=== PATIENT | male | born 1995 | race Caucasian/White ===

== ENCOUNTER 2021-04-17 14:43 | Inpatient (IN) | payer OTHER ==
[~2021-04-17] VITALS: Ht 185.4 cm; Wt 69.6 kg
[~2021-04-17 14:43] MED LIST: IBUP400 PO
--- NOTE | 2021-04-17 16:36 | NUR ---
SHIFT SUMMARY PT DIRECT ADMIT BY ATTENDING PROVIDER, DENIES PAIN, DENIES N/T IN ALL EXTREMITIES, REPORTS MILD SOB BUT STATES IT IS TOLERABLE AT THIS TIME, CHEST TUBE IN PLACE, SUCTION SET UP IN ROOM PER DR REQUEST BUT NOT CURRENTLY ATTACHED TO PT AT THIS TIME. NO ACUTE EVENTS THIS SHIFT, CALL LIGHT IN REACH, WILL CTM AND REPORT TO DAY RN.
--- NOTE | 2021-04-18 04:28 | NUR ---
INFORMATION TECHNOLOGY ANALYST SUMMARY NO ACUTE CHANGES THIS SHIFT. PT AAOX4 AND PLEASANT. CHEST TUBE HOOKED UP TO SUCTION, GOOD SEAL MAINTAINED. VERY SMALL SMOUNTS OF FLUIDS IN SUCTION LINE BUT NONE IN COLLECTION CHAMBER. PT DENIES SOB OR PAIN. VSS, WILL CONTINUE TO MONITOR.
--- NOTE | 2021-04-18 15:36 | NUR ---
SHIFT SUMMARY PT A&OX4, VSS/RA, DENIES CP/SOB, TIFFANIE PO, VOIDING, AMB TO BRP. CHEST TUBE TO WALL SUCTION. WILL REPORT TO ONCOMING NOC RN.
--- NOTE | 2021-04-19 04:45 | NUR ---
SHIFT SUMMARY ELIZABETH DENIES SOB OR CP. ONCE THIS SHIFT, PT STATED HE LIFTED HIS ARM AND THEN NOTICED A SCANT AMOUNT OF BLOODY DRAINAGE FROM THE CHEST TUBE INSERTION SITE DRESSING. CHARGE NURSE NOTIFIED, AND CT SYSTEM ASSESSED FOR LEAKS - SYSTEM IS PATENT WITH 20CM WATER, ATTACHED TO WALL SUCTION. EDGES OF DRESSING REINFORCED WITH CLEAR OFFSITE. SITE ASSESSED THROUGH OUT SHIFT, NO FURTHER DRAINAGE NOTED. PT'S LUNGS ARE CLEAR, DIMINISHED TO THE RIGHT. PT AMBULATES INDEPENDENTLY TO BATHROOM, EDUCATED ON SAFETY MEASURES R/T TUBING. ROOM AIR. NO ACUTE CHANGES, VSS.
--- NOTE | 2021-04-19 08:59 | NUR ---
DENIES ANY SOB OR COUGH, RESPIRATIONS UNLABORED, UP INDEPENDENTLY TO THE BATHROOM, DENIES ANY PAIN, CHEST TUBE TO R CHEST WALL INTACT, DSG INTACT, NO AIR LEAK NOTED IN CHAMBER, CONT. TO MONITOR FOR ANY CHANGES.
--- NOTE | 2021-04-19 11:11 | NUR ---
DENIES ANY SOB OR COUGH, RESPIRATIONS UNLABORED, CHEST TUBE INTACT, DR. APODACA PLACED ON WATER SEAL.
--- NOTE | 2021-04-19 18:23 | NUR ---
SUMMARY CHEST TUBE PLACED TO WATER SEAL BY DR. APODACA TODAY, PT DENIES ANY SOB, PAIN OR ANY DISCOMFORT, CHEST TUBE SITE INTACT, PT AMBULATING TO THE BATHROOM WITHOUT DIFFICULTY, PLAN FOR CXR IN AM, NO ACUTE CHANGES THIS SHIFT.
--- NOTE | 2021-04-20 07:19 | NUR ---
SUMMARY PT WITHOUT C/O TONIGHT. CT REMAINS TO WATERSEAL. DENIES SOB
--- NOTE | 2021-04-20 08:28 | NUR ---
DENIES ANY SOB, PAIN OR ANY DISCOMFORT THIS AM, CHEST TUBE TO RCW INTACT, NO AIR LEAK NOTED, CXR PENDING THIS AM.
--- NOTE | 2021-04-20 11:46 | NUR ---
CHEST TUBE PLACED BACK ON SUCTION BY DR. APODACA.
--- NOTE | 2021-04-20 17:10 | NUR ---
SUMMARY DENIES ANY SOB OR COUGH, CHEST TUBE TO SUCTION, INDEPENDENT IN ROOM, DENIES ANY PAIN, CXR IN AM PER DR. APODACA, NO ACUTE CHANGES THIS SHIFT.
--- NOTE | 2021-04-20 23:05 | NUR ---
PT REPORTS MILD INCREASED SOB.WHEN QUESTIONED FURTHER, PT STATES HIS BREATHING "DEFINITELY FEELS DIFFERENT THAN 2 HRS AGO" PLEURAVAC HAS INCREASED WATER IN THE AIR LEAK METER CHAMBER NOTED.PT HAS NO NOTING OF IT GETTING TIPPED.CONTINUES SX AT 20 CM.VS SATISF SLIGHTLY HYPERTENSIVE.PT AKNOWLEDGED SOME ANXIETY REGARDING HAVING TO RETURN SX TO CHEST TUBE TODAY.I CALLED DR APODACA AND ADVISED OF ABOVE AND ONLY ORDER RECEIVED IS TO CHANGE OUT PLEURAVAC.
--- NOTE | 2021-04-21 00:38 | NUR ---
ATRIUM-PLEURAVAC WAS CHANGED.SX CONTINUED AT 20 CM.
--- NOTE | 2021-04-21 07:41 | NUR ---
SUMMARY PT REPORTS FEELING A LITTLE LESS SOB THIS AM.PET CAREGIVERILSA JONES JUST RECEIVED ORDERS TO NOT REMOVE SX ON THIS PT.PET CAREGIVER IS NOTIFYING PT.
--- NOTE | 2021-04-21 08:53 | NUR ---
PT WITH THORVENT TO R CHEST WALL SET TO 20CM WALL SX. NO CREPITUS NOTED. PT REPORTS SOME SOB BUT STATES IT IS BETTER THAN IS WAS IN THE NIGHT.
--- NOTE | 2021-04-22 07:23 | NUR ---
PT SLEPT FOR MAJORITY OF NIGHT. VSS, RESP E/U, SATS >90% ON RA. CHEST TUBE CONT ON LOW SX, NO CREPITUS NOTED. PT DENIED SOB, DENIED PAIN.
--- NOTE | 2021-04-22 08:37 | NUR ---
PT SITTING UP IN BED, DOES NOT APPEAR TO BE HAVING ANY DIFFICULTY BREATHING. THORAVENT TO R CHEST WALL TO 20CM SX. DRESSING C/D/I. PT REPORTS IT IS "MUCH EASIER TO BREATHE TODAY". NO CREPITUS PRESENT. INCREASED BREATH SOUNDS ON R. PLAN TO CONTINUE SX UNTIL WEDNESDAY.
--- NOTE | 2021-04-22 18:38 | NUR ---
SHIFT SUMMARY PT HAS DONE WELL T/O SHIFT. THORAVENT TO R CHEST WALL TO SX. PT REPORTS FEELING THAT HE IS BREATHING EASIER. VSS. SX NOT TO BE REMOVED TILL WEDNESDAY WITH DR GUSTAVO BOOGIE.
--- NOTE | 2021-04-23 04:04 | NUR ---
SHIFT SUMMARY: PATIENT AOX4, DENIES ANY PAIN, OFFERED ANYTHING THAT HE MAY NEED BUT PT. SAID HE DOES NOT NEED ANYTHING & THAT HE IS DOING WELL. THORAVENT TO R CHEST WALL TO SX, INTACT. NO CREPITUS NOTED. WILL CONTINUE TO MONITOR.
--- NOTE | 2021-04-23 19:07 | NUR ---
SUMMARY PT CONT. TO BE ON CONT. SUCTION FOR CHEST TUBE, REPORTS BREATHING IS "NOT GOOD YESTERDAY" DENIES ANY SOB OR PAIN, UP INDEPENDENTLY IN ROOM, USING IS INSTRUCTED, NO ACUTE CHANGES THIS SHIFT.
--- NOTE | 2021-04-24 05:56 | NUR ---
SHIFT SUMMARY: THORAVENT TO R CHEST WALL TO SX, AIRLEAK SINCE DAYSHIFT IS THE SAME. PT. DENIES GETTING WORSE WITH BREATHING, DIMINISHED BREATH SOUNDS TO R LOBE.SLEPT WELL T/O THE NIGHT. ROUNDING PER PROTOCOL THEN PRN DONE.NO ACUTE CHANGES NOTED.
--- NOTE | 2021-04-24 10:43 | NUR ---
PT TO HAVE VATS PROCEDURE DONE BY DR. CHEN, PT TRANSPORTED TO DAY SURGERY VIA RWEATHERBY, CHEST TUBE PLACED ON WATER SEAL BY ILSA SANCHEZ.
--- NOTE | 2021-04-24 10:59 | NUR ---
Pre-Op teaching done. Pt verbalizes understanding. Patient confirms NPO status and agrees with scheduled surgery.
--- NOTE | 2021-04-24 13:32 | NUR ---
History, Chart, Medications and Allergies reviewed before start of procedure.Patient confirms NPO status and agrees with scheduled surgery. Pre-Op teaching done. Pt verbalizes understanding.
--- NOTE | 2021-04-24 19:05 | NUR ---
SUMMARY NO ACUTE CHANGES SINCE ARRIVING BACK TO ROOM FROM PACU. CHEST TUBE TO SUCTION. SLIGHT CREPITUS NOTED. VSS ON RA. MEDICATED PER ORDERS FOR PAIN. BROUGHT PAIN FROM 08/22 TO 05/22. REPORT GIVEN TO ONCOMING SHIFT.
--- NOTE | 2021-04-25 06:03 | NUR ---
DELIVERY DEPARTMENT SUPERVISOR SUMMARY PT REMAINS ON RA THROUGH THE NIGHT, SATTING HIGH 90'S AND HAS DENIED SOB. CHEST TUBE TO RCW SET TO SUCTION. TOTAL OF 43 ML RED DRAINAGE IN COLLECTION CHAMBER OF 0600. MEDICATED FOR SOME BACK PAIN ALONG WITH SOME TENDERNESS TO THE CT INSERTION SITE X1. PT HAS SLEPT MOST OF THE NIGHT. VSS, WILL CONTINUE TO MONITOR.
--- NOTE | 2021-04-25 13:00 | NUR ---
04/25/21 [facility] Avani Garcia VERIFICATIONS: EDIT CHART.
--- NOTE | 2021-04-25 17:55 | NUR ---
SHIFT SUMMARY PATIENT ALERT AND ORIENTED THROUGHOUT SHIFT. TOLERATING REGULAR DIET AND LIQUIDS. SBA UP TO CHAIR FOR MEALS. CHEST TUBE SITE WNL TO WALL SUCTION. MEDICATED FOR PAIN PRN SEE EMAR. LUNGS SOUNDS DIM THROUGHOUT. SALINE LOCKED. VOIDING WELL. VSS STABLE, ON RA.
--- NOTE | 2021-04-26 04:36 | NUR ---
SHIFT SUMMARY: PT IN BED AAAOX4. VS WNL ON RA. DENIES SOB. CHEST TUBE IN PLACE AT RCW SET TO SUCTION. MEDICATED FOR PAIN AND TENDERNESS AT CHEST TUBE SITE. SLEPT THOUGH THE NIGHT. TOTAL DRAINAGE APPROXIMATLY 20ML. WILL CONTINUE TO MONITOR AND MAINTAIN ALL SAFTEY PRECUTIONS.
--- NOTE | 2021-04-26 19:32 | NUR ---
SHIFT SUMMARY NO ACUTE CHANGES DURING THE DAY. PT AOX4. TOLERATING PO INTAKE (REG DIET). REPORTS SOME MODERATE PAIN ON R CHEST WALL TO BACK. PAIN MANAGED WITH IBUPROFEN AND OXY. LUNGS SOUNDS ARE DIM BUT CLEAR. SALINE LOCKED. VOIDING WELL IN HIS URINAL WITHOUT DIFFICULTY. VSS. PT ON ROOM AIR. CHEST TUBE ON WALL SUCTIONING CONT. CALL LIGHT WITHIN REACH. REPORT GIVEN TO IMTIAZ ROSENBAUM.
--- NOTE | 2021-04-27 04:34 | NUR ---
SHIFT SUMMARY: PT IN BED AAOX4. VS WNL WITH NO SIGNS OF DISTRESS NOTED. CHEST TUBE IN PLACE RCW SET TO SX WITH WATER SEAL. DENIES SOB. COMPLAINS OF PAIN IN UPPER SIDE OF BACK. MEDICATED PER EMAR. PT REFUSED COLACE. IV SALINE LOCK FLUSHED WITH NS. EYES CLOSED RESTING. MONITORING AND MAINTAINING ALL PRECAUTIONS. VOIDED 800ML CLEAR YELLOW URINE.
--- NOTE | 2021-04-27 16:37 | NUR ---
SHIFT SUMMARY AOX4. VSS. PT ON WATER SEAL THIS MORNING. TOLEARTING PO INTAKE, DENIES NAUSEA AND VOMITING. PT REPORTS MODERATE PAIN ON R CHEST WALL AND BACK. MEDICATED WITH IBUPROFEN AND NORCO. CHEST XRAY DONE AT NOON. DR. CHEN CAME IN TO SEE PT AND RETURN CHEST TUBE TO CONTINIOUS SUCTION. PT AMBULATES IN THE BATHROOM. HAD A BM THIS MORNING. CALL LIGHT WITHIN REACH. WILL PROVIDE REPORT ONCOMING NURSE.
--- NOTE | 2021-04-28 04:35 | NUR ---
SHIFT SUMMARY: PT IN BED AAOX4. VS WNL NO NO SIGNS OF DISTRESS NOTED. CHEST TUBE IN PLACE TO RCW WITH WALL SUCTION. IV SALINE LOCK PATENT. PT COMPLAINS OF PAIN, MEDICATED PER EMAR. CHEST XRAY DONE. WILL CONTINUE TO MONITOR AND MAINTAIN ALL PRECAUTIONS.
--- NOTE | 2021-04-28 18:16 | NUR ---
TOOK OVER CARE OF PATIENT FROM DAY RN AT 1700. PATIENT RESTING IN BED EATING DINNER. DENIES PAIN AT THIS TIME. CHEST TUBE TO LOW CONTINUOUS SUCTION BUBLING GENTLY.
--- NOTE | 2021-04-29 07:44 | NUR ---
PT VSS T/O NIGHT. CHEST TUBE TO LOW SX. PT DENIED SOB, SATS >90% ON RA. SITE WNL, NO CREPITUS NOTED. PT REP WOB "THE BEST IT'S BEEN SINCE THIS STARTED" PT MED FOR PAIN X1 W/REP RELIEF. PT TIFFANIE PO, IS VOIDING URINE W/O DIFFICULTY. PT EAGER TO BE UPDATED TX PLAN. REPORT GIVEN TO ILSA ALCARAZ.
--- NOTE | 2021-04-29 18:38 | NUR ---
SUMMARY DENIED ANY SOB TODAY, CHEST TUBE CONT. TO BE ON SUCTION, NO AIR LEAK NOTED IN PLEURAVAC, REPORTS PAIN IS TOLERABLE WITH NORCO, PLAN TO PLACE CHEST TUBE ON WATER SEAL IN AM PER DR. CHEN, PT AWARE [facility] PLAN, NO ACUTE CHANGES THIS SHIFT.
--- NOTE | 2021-04-30 07:15 | NUR ---
CHEST TUBE PLACED TO WATER SEAL.
--- NOTE | 2021-04-30 07:27 | NUR ---
PT VSS T/O NIGHT, SATS >90% ON RA. PT DENIES SOB. CHEST TUBE PLACED TO WATER SEAL APPX 0715 THIS AM. PT C/O PAIN AT CT INSERTION SITE, PAIN MED PER EMAR. BEDSIDE REPORT GIVEN TO ERIK Ferro RN.
--- NOTE | 2021-04-30 12:28 | NUR ---
PT TO XRAY AT ABOUT 11, BACK AT 1130. DR. CHEN ROUNDED ON PT AT ABOUT 1200. TO KEEP CT TO WATER SEAL AT THIS TIME PER DR. CHEN.
--- NOTE | 2021-04-30 13:58 | NUR ---
REPORT PASSED TO ILSA KIM AT THIS TIME.
--- NOTE | 2021-04-30 17:15 | NUR ---
SHIFT SUMMARY NO ACUTE CHANGES SINCE ASSUMPTION OF CARE. PAIN IS WELL MANAGED PER EMAR. HE DENIES SHORTNESS OF BREATH. CHEST TUBE REMAINS CLAMPED. PT MOVES WELL IN ROOM. CALLS APPROPRIATLY. PLAN IS FOR REPEAT X-RAY IN THE MORNING AND POSSIBLY DISCHARGE IN THE MORNING.
--- NOTE | 2021-05-01 05:22 | NUR ---
PT VSS T/O NIGHT. SATS >90% ON RA. PT DENIED SOB. CHEST TUBE TO WATER SEAL, NO AIR LEAKS NOTED IN PLEUR EVAC. AWAITING REPEAT XRAY THIS AM. PAIN MGD W/IBUPROFEN W/REP RELIEF.
[2021-05-01] MEDS ORDERED: HYDR1TAB94 PO (09:54)
== END 2021-05-01 11:06 | disposition home or self-care (01) | DRG 165 ==
LOC: SURS 14:43
PROVIDERS: ADMIT Surgery
PROC: 0W9940Z Drainage of Right Pleural Cavity with Drainage Device, Percutaneous Endoscopic Approach (ICD-10-PCS; 2021-04-24)
PROC: 0BBC4ZZ Excision of Right Upper Lung Lobe, Percutaneous Endoscopic Approach (ICD-10-PCS; 2021-04-24)
PROC: 3E0L3GC Introduction of Other Therapeutic Substance into Pleural Cavity, Percutaneous Approach (ICD-10-PCS; principal; 2021-04-24 10:30)
DX: J93.83 Other pneumothorax (principal); Z87.891 Personal history of nicotine dependence; J93.82 Other air leak; Z53.29 Procedure and treatment not carried out because of patient's decision for other reasons
CPT/HCPCS: 71045; 71046; 88307; A9270; J0690; J1100; J1885; J2250; J2405; J2704; J2710; J3010; J7120

== ENCOUNTER 2022-02-10 07:38 | Emergency (ER) | payer OTHER ==
[~2022-02-10] VITALS: Ht 185.4 cm; Wt 72.6 kg
[~2022-02-10 07:38] MED LIST changes: +HYDR1TAB94 PO
[2022-02-10] MEDS ORDERED: OXAYDO5 M1 PO (11:40)
== END 2022-02-10 11:56 | disposition home or self-care (01) ==
LOC: ER 07:38
DX: J93.83 Other pneumothorax (principal); Z87.891 Personal history of nicotine dependence
CPT/HCPCS: 36415; 71045; 71046; A9270; J1885; J3010

== ENCOUNTER 2022-02-11 09:56 | Emergency (ER) | payer OTHER ==
[~2022-02-11] VITALS: Ht 185.4 cm; Wt 72.6 kg
[~2022-02-11 09:56] MED LIST changes: +OXAYDO5 M1 PO
== END 2022-02-11 11:28 | disposition home or self-care (01) ==
LOC: ER 09:56
DX: J93.83 Other pneumothorax (principal); Z97.8 Presence of other specified devices; Z79.899 Other long term (current) drug therapy; Z87.891 Personal history of nicotine dependence
CPT/HCPCS: 71046; A9270

== ENCOUNTER 2022-02-14 09:01 | Emergency (ER) | payer OTHER ==
[~2022-02-14] VITALS: Ht 185.4 cm; Wt 72.6 kg
== END 2022-02-14 12:42 | disposition home or self-care (01) ==
LOC: ER 09:01
DX: Z48.03 Encounter for change or removal of drains (principal); Z87.891 Personal history of nicotine dependence
CPT/HCPCS: 71046

== ENCOUNTER 2024-02-09 08:51 | Emergency (ER) | payer SELFPAY ==
[~2024-02-09] VITALS: Ht 182.9 cm; Wt 72.6 kg
[2024-02-09 17:30] VITALS: BP 150/134
== END 2024-02-09 18:03 | disposition left against medical advice (07) ==
LOC: ER 08:51
DX: J93.83 Other pneumothorax (principal); F17.200 Nicotine dependence, unspecified, uncomplicated
CPT/HCPCS: 32551; 71045; 71046; 71260; 99285-25; Q9967